=== PATIENT | female | born 2000 | race Caucasian/White ===

== ENCOUNTER 2025-11-03 20:10 | Emergency (ER) | payer MEDICAID ==
[~2025-11-03] VITALS: Ht 165.1 cm; Wt 127.0 kg
[2025-11-03 20:21] VITALS: TEMP 36.6; O2SAT 100
[2025-11-03] MEDS ORDERED: ONDANSETRON 4MG ODT PO ONE (21:30)
[2025-11-03 21:58] LABS: BASOPHILS % 0.4 % (0.0-2.0); EOSINOPHILS % 1.1 % (0.0-5.0); HEMATOCRIT. 41.0 % (36.0-48.0); HEMOGLOBIN. 13.5 g/dL (12.0-16.0); LYMPHOCYTES % 30.1 % (20.0-50.0); MEAN PLATELET VOLUME 7.7 fl (7.4-10.4); MONOCYTES % 10.1 % (2.0-8.0); NEUTROPHILS % 58.3 % (40.0-76.0); PLATELET 306 x1000/uL (130-400); RED BLOOD CELL COUNT 4.45 mill/uL (4.2-5.4); RED CELL DISTRIBUTION WIDTH 13.6 % (11.6-14.6)
[2025-11-03] MEDS: METOCLOPRAMIDE HCL 10MG TABLET PO ONE (22:05)
[2025-11-03] MEDS: ACETAMINOPHEN 500MG TABLET PO ONE (22:05)
[2025-11-03] MEDS: DIPHENHYDRAMINE 25MG CAPSULE PO ONE (22:05)
[2025-11-03 22:10] LABS: HCG SCREEN NEGATIVE
[2025-11-03 22:12] LABS: CREATININE 0.8 mg/dL (0.6-1.0)
[2025-11-03 22:13] LABS: PROTEIN TOTAL 7.1 g/dL (6.0-8.3); UREA NITROGEN BLOOD 10 mg/dL (9-23)
[2025-11-03 22:14] LABS: ASPARTATE AMINOTRANSFERASE 24 IU/L (<34)
[2025-11-03 22:15] LABS: BILIRUBIN DIRECT < 0.1 mg/dL (<=3.0); BILIRUBIN TOTAL 0.3 mg/dL (0.1-1.0)
[2025-11-03] MEDS ORDERED: LIDO-53 TP (23:23)
[2025-11-03] MEDS ORDERED: NAPR-1176 MT (23:23)
[2025-11-03] MEDS ORDERED: ONDA4TAB50 MT (23:36)
[2025-11-03 23:39] VITALS: BP 132/76; PULSE 76; RESP 16; O2SAT 100
== END 2025-11-03 23:39 | disposition home or self-care (01) ==
LOC: ER 20:10
DX: S09.8XXA Other specified injuries of head, initial encounter (principal); X58.XXXA Exposure to other specified factors, initial encounter; Y93.89 Activity, other specified; Y92.89 Other specified places as the place of occurrence of the external cause; Y99.8 Other external cause status; Z79.1 Long term (current) use of non-steroidal anti-inflammatories (NSAID)
CPT/HCPCS: 99284; 70450; 80076; 80048; 84703; 83690; 85025; 36415; Q0163; J8597